=== PATIENT | male | born 1965 | race Caucasian/White ===

== ENCOUNTER → 2016-11-11 | Outpatient (CLI) | payer BC ==
[~2016-11-11] MED LIST: OMEP20CA59 PO; OXYC-57 PO
--- NOTE | 2016-11-11 15:42 | DIAGNOSTIC IMAGING REPORT ---
CHEST 2 VIEWS ROUTINE CLINICAL HISTORY: 68.89 Flu-like [id number] dyspnea COMPARISON STUDY: 01/18/2016 FINDINGS: The bones soft tissues and hemidiaphragms are normal. The cardiomediastinal silhouette is normal. The lungs are clear. The pulmonary vasculature is normal. IMPRESSION: Negative chest. Electronically signed by: Gutierrez Lopez M.D. 11/11/2016 3:41 PM Dictated Date/Time: 11/11/2016 3:41 PM
[2016-11-11 15:51] LABS: URINE APPEARANCE CLEAR (CLEAR); URINE BILIRUBIN NEG (NEG); URINE COLOR YELLOW; URINE EPITHELIAL CELL AUTO 0-5 /lpf (0-5); URINE NITRITE NEG (NEG); URINE PH 6.5 (4.5-7.5); URINE SPECIFIC GRAVITY 1.019 (1.000-1.030); UROBILINOGEN NEG (NEG); ZZUR CULT IF INDIC CLEAN CATCH NO
[2016-11-11 15:57] LABS: MANUAL MICROSCOPIC REQUIRED? NO; REVIEW REQ? NO
[2016-11-11 16:19] LABS: ALT/SGPT 96 U/L (12-78); AST/SGOT 50 U/L (15-37); BLOOD UREA NITROGEN 14 mg/dl (7-18); BUN/CREATININE RATIO 14.8 (10-20); CARBON DIOXIDE 32 mmol/L (21-32); CHLORIDE 105 mmol/L (98-107); CREATININE 0.97 mg/dl (0.60-1.40); GLUCOSE 84 mg/dl (70-99); POTASSIUM 4.3 mmol/L (3.5-5.1); SODIUM 143 mmol/L (136-145)
[2016-11-11 16:23] LABS: ALB/GLOB RATIO 1.1 (0.9-2); ALKALINE PHOSPHATASE 140 U/L (45-117)
[2016-11-11 16:38] LABS: HEMATOCRIT 43.3 % (42-52); MEAN CELL VOLUME 86.4 fL (80-100); MEAN CORPUSCULAR HEMOGLOBIN 29.1 pg (25-34); MEAN CORPUSCULAR HGB CONC 33.7 g/dl (32-36); MEAN PLATELET VOLUME 11.2 fL (7.4-10.4); PLATELET COUNT 140 K/uL (130-400); RED BLOOD COUNT 5.01 M/uL (4.7-6.1); WHITE BLOOD COUNT 3.49 K/uL (4.8-10.8)
[2016-11-11 16:40] LABS: COMPLETE YES; ECHINOCYTES 1+; SMUDGE CELLS PRESENT
[2016-11-14 07:01] LABS: EOSINOPHIL % 1.8 %; NEUTROPHILS % 21.6 %
[2016-11-14 07:02] LABS: LYMPH ABS # 1.88 K/uL (1.2-3.4); VARIANT LYM ABS # 0.35 K/uL
== END | disposition home or self-care (01) ==
LOC: C.RAD1850 14:45
PROVIDERS: ATTEND Internal Medicine
DX: R50.9 Fever, unspecified (principal); R68.89 Other general symptoms and signs

== ENCOUNTER → 2016-11-14 | Outpatient (CLI) | payer BC ==
[2016-11-14 16:33] LABS: HEMATOCRIT 43.9 % (42-52); MEAN CELL VOLUME 86.4 fL (80-100); MEAN CORPUSCULAR HEMOGLOBIN 28.9 pg (25-34); MEAN CORPUSCULAR HGB CONC 33.5 g/dl (32-36); MEAN PLATELET VOLUME 10.7 fL (7.4-10.4); PLATELET COUNT 228 K/uL (130-400); RED BLOOD COUNT 5.08 M/uL (4.7-6.1); WHITE BLOOD COUNT 6.96 K/uL (4.8-10.8)
[2016-11-14 16:41] LABS: ALT/SGPT 159 U/L (12-78); BLOOD UREA NITROGEN 15 mg/dl (7-18); BUN/CREATININE RATIO 15.2 (10-20); CARBON DIOXIDE 29 mmol/L (21-32); CHLORIDE 105 mmol/L (98-107); CREATININE 0.98 mg/dl (0.60-1.40); GLUCOSE 80 mg/dl (70-99); SODIUM 142 mmol/L (136-145)
[2016-11-14 16:44] LABS: ALB/GLOB RATIO 1.1 (0.9-2); ALKALINE PHOSPHATASE 123 U/L (45-117); AST/SGOT 74 U/L (15-37)
[2016-11-14 16:57] LABS: CALCIUM 9.4 mg/dl (8.5-10.1)
[2016-11-14 16:58] LABS: BASO ABS # 0.12 K/uL (0-0.2); BASOPHIL % 1.7 % (0-2); COMPLETE YES; EOSINOPHIL % 1.7 %; LYMPH ABS # 1.88 K/uL (1.2-3.4); NEUTROPHILS % 32.2 %; VARIANT LYM ABS # 2.42 K/uL; VARIANT LYMPHOCYTE % 34.8 %
[2016-11-14 17:04] LABS: LYME DISEASE AB IGG NEG (NEG); LYME DISEASE AB IGM NEG (NEG)
[2016-11-17 18:34] LABS: ANAPLASMA PHAGOCYTOPHIL IGG <1:64 (<1:64); ANAPLASMA PHAGOCYTOPHIL IGM <1:20 (<1:20); EHRLICHIA CHAFF IGG AB <1:64 (<1:64); EHRLICHIA CHAFF IGM AB <1:20 (<1:20)
== END | disposition home or self-care (01) ==
LOC: C.LAB1850 14:46
PROVIDERS: ATTEND Internal Medicine
DX: R79.9 Abnormal finding of blood chemistry, unspecified (principal); R50.9 Fever, unspecified; D70.9 Neutropenia, unspecified

== ENCOUNTER → 2016-11-28 | Outpatient (CLI) | payer BC ==
[~2016-11-28] MED LIST changes: -OXYC-57 PO
[2016-11-28 15:47] LABS: HEMATOCRIT 43.2 % (42-52); MEAN CELL VOLUME 86.6 fL (80-100); MEAN CORPUSCULAR HEMOGLOBIN 28.9 pg (25-34); MEAN CORPUSCULAR HGB CONC 33.3 g/dl (32-36); MEAN PLATELET VOLUME 10.7 fL (7.4-10.4); PLATELET COUNT 240 K/uL (130-400); RED BLOOD COUNT 4.99 M/uL (4.7-6.1); WHITE BLOOD COUNT 5.21 K/uL (4.8-10.8)
[2016-11-28 16:12] LABS: COMPLETE YES
[2016-11-28 16:18] LABS: ALT/SGPT 44 U/L (12-78); AST/SGOT 19 U/L (15-37); BLOOD UREA NITROGEN 13 mg/dl (7-18); BUN/CREATININE RATIO 13.3 (10-20); CARBON DIOXIDE 30 mmol/L (21-32); CHLORIDE 107 mmol/L (98-107); GLUCOSE 99 mg/dl (70-99); POTASSIUM 4.2 mmol/L (3.5-5.1); SODIUM 142 mmol/L (136-145)
[2016-11-28 16:21] LABS: ALB/GLOB RATIO 1.1 (0.9-2); ALKALINE PHOSPHATASE 119 U/L (45-117)
[2016-11-28 17:16] LABS: LYMPHOCYTE % 63.4 %; NEUTROPHILS % 25.9 %
[2016-11-28 17:17] LABS: BASO ABS # 0.05 K/uL (0-0.2); BASOPHIL % 0.9 % (0-2); EOSINOPHIL % 3.6 %
[2016-12-01 16:33] LABS: ANAPLASMA PHAGOCYTOPHIL IGG <1:64 (<1:64); ANAPLASMA PHAGOCYTOPHIL IGM <1:20 (<1:20)
== END | disposition home or self-care (01) ==
LOC: C.LAB1850 14:55
PROVIDERS: ATTEND Internal Medicine
DX: R79.9 Abnormal finding of blood chemistry, unspecified (principal); Z11.59 Encounter for screening for other viral diseases; R50.9 Fever, unspecified; D70.9 Neutropenia, unspecified

== ENCOUNTER → 2016-12-28 | Day surgery (SDC) | payer BC, OTHER ==
[2016-12-20 08:33] VITALS: Ht 177.8 cm; Wt 104.5 kg
[~2016-12-28] VITALS: Ht 177.8 cm; Wt 104.5 kg
[~2016-12-28] MED LIST changes: +PROPOFOL IV EMULSION 10 MG/ML 20 ML VIAL IV ONE; +SODIUM CHLORIDE 0.9% 500ML 500 ML IV ONE
--- NOTE | 2016-12-28 08:26 | Endo History and Physical ---
History & Physical Date of Service: Dec 28, 2016. Chief Complaint: Screening Referring Physician: Mccann History of Present Illness 51 yo CM who presents for screening colonoscopy. Past Surgical History Hx Cardiac Surgery: No Hx Internal Defibrillator: No Hx Pacemaker: No Hx Abdominal Surgery: Yes (HERNIA-05/2016) Hx of Implantable Prosthesis: No Hx Post-Op Nausea and Vomiting: No ( ) Hx Cancer Surgery: No Hx Thoracic Surgery: No Hx Orthopedic: No Hx Urinary Tract Surgery: No Family History Colon CA, Polyp Social History Smoking Status: Never Smoker Hx Substance Use: No Hx Alcohol Use: Yes (6-10 BEER A WEEK) Allergies Coded Allergies: Penicillins (Verified Allergy, Unknown, HIVES, 12/20/16) Current Medications Reported Home Medications Medications Dose Route/Sig Max Daily Dose Days Date Category Prilosec (Omeprazole) 20 Mg Capcr 20 Mg PO DAILY PRN 12/20/11 Reported Vital Signs Weight (Kilograms): 104.55 Height (Feet): 5 Height (Inches): 10 Date Time Temp Pulse Resp B/P (MAP) Pulse Ox O2 Delivery O2 Flow Rate FiO2 12/28/16 08:17 36.8 86 18 120/85 (97) 96 Room Air Physical Exam General Appearance: WD/WN, no apparent distress Respiratory/Chest: Auscultation: breath sounds normal Cardiovascular: Heart Auscultation: RRR Abdomen: Bowel Sounds: normal Inspection & Palpation: soft, non-distended, no tenderness, guarding & rebound Assessment and Plan Assessment: 51 yo CM who presents for screening colonoscopy. Plan: Proceed with colonoscopy.
--- NOTE | 2016-12-28 08:59 | GI REPORT ---
Procedure Date: 12/28/2016 8:28 AM Procedure: Colonoscopy Indications: Screening for colorectal malignant neoplasm Medicines: Monitored Anesthesia Care Complications: No immediate complications. Estimated Blood Loss: Estimated blood loss: none. Procedure: Pre-Anesthesia Assessment: - Prior to the procedure, a History and Physical was performed, and patient medications and allergies were reviewed. The patient's tolerance of previous anesthesia was also reviewed. The risks and benefits of the procedure and the sedation options and risks were discussed with the patient. All questions were answered, and informed consent was obtained. Prior Anticoagulants: The patient has taken no previous anticoagulant or antiplatelet agents. ASA Grade Assessment: I - A normal, healthy patient. After reviewing the risks and benefits, the patient was deemed in satisfactory condition to undergo the procedure. After I obtained informed consent, the scope was passed under direct vision. Throughout the procedure, the patient's blood pressure, pulse, and oxygen saturations were monitored continuously. The scope was introduced through the anus and advanced to the terminal ileum. The colonoscopy was performed without difficulty. The patient tolerated the procedure well. The quality of the bowel preparation was good. The terminal ileum, ileocecal valve, appendiceal orifice, and rectum were photographed. Findings: A 5 mm polyp was found in the sigmoid colon. The polyp was sessile. The polyp was removed with a hot snare. Resection and retrieval were complete. Multiple small-mouthed diverticula were found in the sigmoid colon. Non-bleeding internal hemorrhoids were found during retroflexion. The hemorrhoids were small. Impression: - One 5 mm polyp in the sigmoid colon, removed with a hot snare. Resected and retrieved. - Diverticulosis in the sigmoid colon. - Non-bleeding internal hemorrhoids. Recommendation: - Resume previous diet. - Continue present medications. - Repeat colonoscopy for surveillance based on pathology results. - Return to primary care physician as previously scheduled. Dawson Chatman DO 12/28/2016 8:59:12 AM This report has been signed electronically. Note Initiated On: 12/28/2016 8:28 AM I attest to the content of the Intraoperative Record and orders documented therein, exceptions below
--- NOTE | 2016-12-28 09:01 | Discharge Instructions ---
Endoscopy Patient Instructions Date / Procedure(s) Performed Dec 28, 2016. Colonoscopy Allergy Information Coded Allergies: Penicillins (Verified Allergy, Unknown, HIVES, 12/20/16) Discharge Date / Findings Dec 28, 2016. Colon polyp Diverticulosis Internal hemorrhoids Medication Instructions OK to resume all medications today as prescribed Medications Dose Route/Sig Max Daily Dose Days Date Category Prilosec (Omeprazole) 20 Mg Capcr 20 Mg PO DAILY PRN 12/20/11 Reported Provider Instructions Activity Restrictions - No exercising or heavy lifting for 24 hours. - Do not drink alcohol the day of the procedure. - Do not drive a car or operate machinery until the day after the procedure. - Do not make any important decisions or sign important papers in 24 hours after the procedure. Following Day: - Return to full activity which may include returning to work/school. Diet Start your diet with liquids and light foods (jello, soup, juice, toast). Then eat your usual diet if not nauseated. Treatment For Common After Affects For mild abdominal pain, bloating, or excessive gas: - Rest - Eat lightly - Lie on right side Follow-Up Information Follow-up with [facility] as scheduled Anesthesia Information What You Should Know You have had a procedure that required some medicine to reduce anxiety and discomfort. This treatment is called moderate sedation. After receiving the treatment, you may be sleepy, but you will be able to breathe on your own. The effects of the treatment may last for several hours. Follow these instructions along with Activity/Diet recommendations noted above: * Do NOT do anything where dizziness or clumsiness would be dangerous. * Rest quietly at home today, then you can be up and about tomorrow. * Have a responsible person stay with you the rest of today. * You may have had an I.V. today. If so, you may take the dressing off later today. Recommendations Call your doctor if: * Trouble breathing * Continuous vomiting for more than 24 hours * Temperature above 101 degrees * Severe abdominal pain or bloating * Pain not relieved by pain medicine ordered * There is increased drainage or redness from any incision * A large amount of rectal bleeding greater than 2-3 tablespoons. (If you had a polyp/s removed or have hemorrhoids, a small amount of blood - from the rectum is to be expected.) * You have any unanswered questions or concerns. IN THE EVENT OF A SERIOUS EMERGENCY, GO TO THE NEAREST EMERGENCY ROOM Your discharge instructions were prepared by provider Dawson Chatman. Patient Instructions Signature Page Tremayne Maxi Patient (or Guardian) Signature/Date: I have read and understand the instructions given to me by my caregivers. Caregiver/RN/Doctor Signature/Date: The above-named patient and/or guardian has received patient instructions on this date. + Original Patient Signature Page (only) stays with chart. Please make copy for patient.
--- NOTE | 2016-12-28 09:30 | Anesthesiology Progress Note ---
Anesthesia Post Op Note Date & Time Dec 28, 2016 at 09:30 Vital Signs Pain Intensity: 0 Vital Signs Past 12 Hours Date Time Temp Pulse Resp B/P (MAP) Pulse Ox O2 Delivery O2 Flow Rate FiO2 12/28/16 09:15 88 18 115/89 (98) 100 Room Air 12/28/16 09:02 93 18 87/69 (75) 100 Room Air 12/28/16 08:17 36.8 86 18 120/85 (97) 96 Room Air Notes Mental Status: alert / awake / arousable, participated in evaluation Pt Amnestic to Procedure: Yes Nausea / Vomiting: adequately controlled Pain: adequately controlled Airway Patency, RR, SpO2: stable & adequate BP & HR: stable & adequate Hydration State: stable & adequate Anesthetic Complications: no major complications apparent
[2016-12-28 09:47] VITALS: BP 129/88; PULSE 87; O2SAT 100
== END | disposition home or self-care (01) ==
LOC: C.GI 07:48
PROVIDERS: ATTEND Internal Medicine
DX: Z12.11 Encounter for screening for malignant neoplasm of colon (principal); D12.5 Benign neoplasm of sigmoid colon; K57.30 Diverticulosis of large intestine without perforation or abscess without bleeding; K64.8 Other hemorrhoids; Z80.0 Family history of malignant neoplasm of digestive organs; Z83.71 Family history of colonic polyps; Z79.899 Other long term (current) drug therapy

== ENCOUNTER → 2018-02-12 | Outpatient (CLI) | payer BC, OTHER ==
[~2018-02-12] MED LIST changes: -PROPOFOL IV EMULSION 10 MG/ML 20 ML VIAL IV ONE; -SODIUM CHLORIDE 0.9% 500ML 500 ML IV ONE
--- NOTE | 2018-02-12 13:14 | DIAGNOSTIC IMAGING REPORT ---
R KNEE 1 OR 2 VIEWS ROUTINE CLINICAL HISTORY: Right knee pain. Swelling of right knee joint. COMPARISON: Right knee radiographs August 29, 2006 and MRI of the right knee August 30, 2006. FINDINGS: Alignment of the right knee is anatomic. There is minimal medial compartment joint space narrowing with osteophytosis. There is no fracture. There is a possible right knee joint effusion. An irregular calcific density along the medial femoral condyle could reflect an old MCL injury. IMPRESSION: 1. No acute fracture. 2. Mild medial compartment osteoarthritis of the right knee. 3. Small calcific density along the medial femoral condyle which may reflect an old MCL injury. 4. Possible right knee joint effusion. Electronically signed by: Charly Richardson M.D. 02/12/2018 1:13 PM Dictated Date/Time: 02/12/2018 1:09 PM
[2018-02-12 17:07] LABS: BASO % 0.3 %; BASO ABS # 0.02 K/uL (0-0.2); EOS % 2.6 %; EOS ABS # 0.18 K/uL (0-0.5); HEMATOCRIT 47.3 % (42-52); HEMOGLOBIN 15.8 g/dL (14.0-18.0); IG# 0.02 K/uL (0.00-0.02); LYMPH % 31.9 %; LYMPH ABS # 2.19 K/uL (1.2-3.4); MEAN CELL VOLUME 87.8 fL (80-100); MEAN CORPUSCULAR HEMOGLOBIN 29.3 pg (25-34); MEAN CORPUSCULAR HGB CONC 33.4 g/dl (32-36); MEAN PLATELET VOLUME 11.7 fL (7.4-10.4); MONO % 6.8 %; MONO ABS # 0.47 K/uL (0.11-0.59); NEUT % 58.1 %; NEUT ABS # 3.99 K/uL (1.4-6.5); PLATELET COUNT 235 K/uL (130-400); RED CELL DISTRIBUTION WIDTH CV 13.9 % (11.5-14.5); RED CELL DISTRIBUTION WIDTH SD 44.6 fL (36.4-46.3); WHITE BLOOD COUNT 6.87 K/uL (4.8-10.8)
== END | disposition home or self-care (01) ==
LOC: C.RADBC 12:16
PROVIDERS: ATTEND Nurse Practitioner Adult Health
DX: M17.11 Unilateral primary osteoarthritis, right knee (principal); M25.561 Pain in right knee; M25.461 Effusion, right knee

== ENCOUNTER 2019-12-15 07:30 | Observation (INO) ==
[2019-12-15] MEDS ORDERED: SODIUM CHLORIDE 0.9% 1000ML 1,000 ML IV SCH (08:00)
[2019-12-15 08:06] LABS: Basophils # (auto) 0.04 K/uL (0-0.2); Basophils % (auto) 0.7 %; Eosinophils # (auto) 0.23 K/uL (0-0.5); Eosinophils % (auto) 4.3 %; Hematocrit (blood only) 49.8 % (42-52); Hemoglobin 16.3 g/dL (14.0-18.0); Immature Granulocytes # (auto) 0.01 K/uL (0.00-0.02); Immature Granulocytes % (auto) 0.2 %; Lymphocytes # (auto) 2.44 K/uL (1.2-3.4); Lymphocytes % (auto) 45.1 %; Mean Corpuscular Hgb Conc 32.7 g/dL (32-36); Mean Corpuscular Volume 88.5 fL (80-100); Monocytes % (auto) 7.4 %; Neutrophils # (auto) 2.29 K/uL (1.4-6.5); Neutrophils % (auto) 42.3 %; Platelet Count 240 K/uL (130-400); RDW Coefficient of Variation 13.7 % (11.5-14.5); RDW Standard Deviation 44.4 fL (36.4-46.3); Red Blood Count 5.63 M/uL (4.7-6.1); White Blood Count 5.41 K/uL (4.8-10.8)
--- NOTE | 2019-12-15 08:07 | Emergency Department Note ---
History of Present Illness General Chief complaint: Chest Pain Stated complaint: CHEST PAIN, BLOODY NOSE, HEADACHE, FLOATERS Source: patient Mode of arrival: ambulatory Limitations: no limitations History of Present Illness Provider complaint: chest pain, HTN, bloody nose, lightheadedness Onset (ago): hour(s) 1 This 54-year-old male patient with past medical history of GERD presents to the emergency department today, ambulatory, complaining of an episode of lightheadedness, chest pain, headache, bloody nose while taking a walk and exercising with his dog. The patient states this morning, he was on a 2 mile walk with his dog when he was walking approximately half a mile uphill and dev eloped sudden onset of bleeding from the right nostril. The patient states he continued to walk home, and felt very lightheaded and "not right". This began approximately 630 this morning. He states he stopped due to the bloody nose, then developed some chest pain which she describes as achiness and a 4/10 on the left side of his chest. He states 1 week ago, he was experiencing some left jaw pain which has also resolved. Patient denies any associated dyspnea. He has been doing a lot of lifting at work recently, so unclear whether this could have been related. He has not experienced the left jaw pain since then. The patient states for the past 1 to 2 weeks, he has been experiencing some intermittent left arm numbness. He denies any neck pain or injury. He denies any weakness, visual disturbances, speech disturbances. The patient states this morning, he did have coffee and did omeprazole, but this is normal for him. When he got home after the walk, he did take 325 mg of aspirin due to his concerns that he may be having a heart attack. The patient is a former tobacco user, and states he quit using chewing tobacco 4 years ago. He does admit to drinking a few cans of beer daily. He states his father of an RI at 72 years old. He denies any history of cardiac disease or cardiac events prior to this time. Patient denies any recent fever or illness. He denies any cough, congestion, abdominal pain, nausea, vomiting, weakness, numbness, gait abnormality. 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 Family History Father Coronary heart disease, Onset Age: 72 Mother Asthma Brother Hypertension Social History Preferred Language: British Communication Ability: Effective Beliefs That Will Affect Care: None Current Living Situation: Spouse current occupational status: employed current occupation: Works construction as a rois Other Information That Helps Us Care for You: No Feels Safe at Home: Yes Safety Concerns: Feels Safe At This Time Smoking Status: Never smoker Hx Alcohol Use: Yes Alcohol type: beer Alcohol Intake Frequency: Daily Alcohol Intake Frequency Comment: 3-4 beers daily, several times per week Hx Substance Use: No Physical Activity Frequency: Daily Physical Activity Frequency Comment: Walks 2 miles Review of Systems A total of 10 systems reviewed and were otherwise negative Physical Exam Vital Signs Vital Signs - 24 hr 12/15/19 07:35 12/15/19 07:46 12/15/19 08:03 Temperature 37.0 C Temperature Source Oral Pulse Rate 85 Pulse Rate [Left Finger] 84 Respiratory Rate 20 20 Respiratory Effort / Characteristics Non-Labored Spontaneous Non-Labored Spontaneous Respiratory Depth Normal Normal Respiratory Pattern Regular Blood Pressure 181/121 H Blood Pressure [Right Arm] 187/124 H Blood Pressure Mean 141 Blood Pressure Mean [Right Arm] 145 Blood Pressure Position Sitting Blood Pressure Position [Right Arm] Lying Pulse Oximetry 98 97 97 Oxygen Delivery Method Room Air Room Air Room Air Sepsis Recent Fever Within 48 Hours No Sepsis New/Unexplained Change in Mental Status No Sepsis Action Taken by Nursing No Action Required 12/15/19 09:31 12/15/19 11:00 Temperature Temperature Source Pulse Rate Pulse Rate [Left Finger] 64 70 Respiratory Rate 18 Respiratory Effort / Characteristics Respiratory Depth Respiratory Pattern Blood Pressure Blood Pressure [Right Arm] 148/84 H 170/116 H Blood Pressure Mean Blood Pressure Mean [Right Arm] 105 134 Blood Pressure Position Blood Pressure Position [Right Arm] Pulse Oximetry 100 97 Oxygen Delivery Method Room Air Room Air Sepsis Recent Fever Within 48 Hours Sepsis New/Unexplained Change in Mental Status Sepsis Action Taken by Nursing VITALS: Vitals are noted on the nurse's note and reviewed by myself. Vital signs stable. GENERAL: This is a 54-year-old white male, in no acute distress, nondiaphoretic, well-developed well-nourished. SKIN: The skin was without rashes, erythema, edema, or bruising. There is no tenting of the skin. Capillary refill less than 2 seconds. HEAD: Normocephalic atraumatic. EARS: External auditory canals clear, tympanic membranes pearly lima without erythema or effusion bilaterally. No hemotympanum. Negative dunn sign. EYES: Pupils equal round and reactive to light and accommodation. Conjunctivae without injection, sclerae without icterus. Extraocular movements intact. NOSE: Dried blood in the right nares. Patent, turbinates without inflammation or discharge. No sinus tenderness. MOUTH: Mucous membranes moist. Tonsils are not enlarged. Pharynx without e rythema or exudate. No blood in the posterior pharynx. Uvula midline. Airway patent. Tongue does not deviate. NECK: Supple without nuchal rigidity. No lymphadenopathy. No thyromegaly. Cervical spine is nontender. No JVD. HEART: Regular rate and rhythm without murmurs gallops or rubs. LUNGS: Clear to auscultation bilaterally without wheezes, rales or rhonchi. No retractions or accessory muscle use. ABDOMEN: Positive bowel sounds x 4. Normal tympanic percussion. Soft, nontender, without masses or organomegaly. Mcdonald sign negative. No guarding or rebound tenderness. MUSCULOSKELETAL: No muscle atrophy, erythema, or edema noted. Full range of motion without joint tenderness in all extremities. No tenderness to palpation. Normal gait. Strength 5/5 throughout. NEURO: Patient was alert and oriented to person place and time. Normal sensation to light and sharp touch. No focal neurological deficits. Course Course The patient was seen and evaluated as above. An order was placed for continuous cardiac monitoring. The monitor shows a normal sinus rhythm at a rate of 71 bpm. IV access obtained, labs drawn. Patient medicated with IV fluids. Imaging performed and reviewed by myself and radiologist as noted. Labs reviewed by myself. Repeat troponin and EKG performed. I discussed the findings with the patient at bedside. I recommended admission given patient's symptoms, hypertensive urgency, chest pain, and detectable troponin. Patient was agreeable. I discussed the case with my attending. I discussed the case with the environmental health manager. I discussed the case with Dr. London, not any hospitalist. She did agree to see and evaluate the patient for admission. Administered Medications Discontinued Medications Hydrochlorothiazide (Hctz) 25 mg PO NOW STA Stop: 12/15/19 12:28 Last Admin: 12/15/19 13:09 Dose: 25 mg Documented by: [id number] Sodium Chloride (Nss 1000ml) 1,000 mls @ 999 mls/hr IV .Q1H1M NADEEM Stop: 12/15/19 09:00 Last Infusion: 12/15/19 09:14 Dose: 0 mls/hr Documented by: [id number] Admin: 12/15/19 08:12 Dose: 999 mls/hr Documented by: [id number] Medical Decision Making Differential Diagnosis Benign hypertension, hypertensive emergency, cardiovascular pathology, toxicologic, pheochromocytoma, electrolyte abnormality, renal disease, endorgan damage, as well as other pathologies. Medical Records Attestation: I reviewed the patient's medical records. Home Medications Current Medication List: was personally reviewed by me Laboratory Data Attestation: I reviewed the patient's lab results. No leukocytosis, anemia, thrombocytopenia. Renal, hepatic function, and electrolytes without significant abnormality. INR 1.0. Initial troponin less t perez 0.015. Repeat troponin 0.016. Lipase 99. D-dimer 260. Result diagrams: 12/15/19 07:50 12/15/19 08:57 Lab Results 12/15/19 12/15/19 12/15/19 Range/Units 07:50 07:50 07:50 WBC 5.41 (4.8-10.8) K/uL RBC 5.63 (4.7-6.1) M/uL Hgb 16.3 (14.0-18.0) g/dL Hct 49.8 (42-52) % MCV 88.5 (80-100) fL MCH 29.0 (25-34) pg MCHC 32.7 (32-36) g/dL RDW Std Deviation 44.4 (36.4-46.3) fL RDW Coeff of Edwin 13.7 (11.5-14.5) % Plt Count 240 (130-400) K/uL MPV 11.0 H (7.4-10.4) fL Immature Gran % (Auto) 0.2 % Neut % (Auto) 42.3 % Lymph % (Auto) 45.1 % Trinity % (Auto) 7.4 % Eos % (Auto) 4.3 % Baso % (Auto) 0.7 % Immature Gran # (Auto) 0.01 (0.00-0.02) K/uL Neut # (Auto) 2.29 (1.4-6.5) K/uL Lymph # (Auto) 2.44 (1.2-3.4) K/uL Trinity # (Auto) 0.40 (0.11-0.59) K/uL Eos # (Auto) 0.23 (0-0.5) K/uL Baso # (Auto) 0.04 (0-0.2) K/uL PT 10.5 (9.0-12.0) Seconds INR 1.0 (0.9-1.1) APTT 34.9 H (21.0-31.0) Seconds PTT Ratio 1.3 D-Dimer (0-500) ug/L FEU Sodium 139 (136-145) mmol/L Potassium (3.5-5.1) mmol/L Chloride 109 H (98-107) mmol/L Carbon Dioxide 26 (21-32) mmol/L Anion Gap 4.0 (3-11) BUN 14 (7-18) mg/dl Creatinine 1.18 (0.6-1.4) mg/dl Est Cr Clr Drug Dosing 87.8 ml/min Est GFR ( Amer) 80.0 Est GFR (Non-Af Amer) 69.1 BUN/Creatinine Ratio 11.5 (10-20) Glucose 112 H (70-99) mg/dl Calcium 9.2 (8.5-10.1) mg/dl Total Bilirubin 0.5 (0.2-1) mg/dl AST (15-37) U/L ALT 36 (12-78) U/L Alkaline Phosphatase 112 (45-117) U/L Troponin I < 0.015 (0-0.045) ng/ml Total Protein 7.9 (6.4-8.2) gm/dl Albumin 4.1 (3.4-5.0) gm/dl Globulin 3.8 (2.5-4.0) gm/dl Albumin/Globulin Ratio 1.1 (0.9-2) Lipase 99 (73-393) U/L 12/15/19 12/15/19 12/15/19 Range/Units 08:57 10:18 11:40 WBC (4.8-10.8) K/uL RBC (4.7-6.1) M/uL Hgb (14.0-18.0) g/dL Hct (42-52) % MCV (80-100) fL MCH (25-34) pg MCHC (32-36) g/dL RDW Std Deviation (36.4-46.3) fL RDW Coeff of Edwin (11.5-14.5) % Plt Count (130-400) K/uL MPV (7.4-10.4) fL Immature Gran % (Auto) % Neut % (Auto) % Lymph % (Auto) % Trinity % (Auto) % Eos % (Auto) % Baso % (Auto) % Immature Gran # (Auto) (0.00-0.02) K/uL Neut # (Auto) (1.4-6.5) K/uL Lymph # (Auto) (1.2-3.4) K/uL Trinity # (Auto) (0.11-0.59) K/uL Eos # (Auto) (0-0.5) K/uL Baso # (Auto) (0-0.2) K/uL PT (9.0-12.0) Seconds INR (0.9-1.1) APTT (21.0-31.0) Seconds PTT Ratio D-Dimer 260 (0-500) ug/L FEU Sodium (136-145) mmol/L Potassium 4.4 (3.5-5.1) mmol/L Chloride (98-107) mmol/L Carbon Dioxide (21-32) mmol/L Anion Gap (3-11) BUN (7-18) mg/dl Creatinine (0.6-1.4) mg/dl Est Cr Clr Drug Dosing ml/min Est GFR ( Amer) Est GFR (Non-Af Amer) BUN/Creatinine Ratio (10-20) Glucose (70-99) mg/dl Calcium (8.5-10.1) mg/dl Total Bilirubin (0.2-1) mg/dl AST 16 (15-37) U/L ALT (12-78) U/L Alkaline Phosphatase (45-117) U/L Troponin I 0.016 (0-0.045) ng/ml Total Protein (6.4-8.2) gm/dl Albumin (3.4-5.0) gm/dl Globulin (2.5-4.0) gm/dl Albumin/Globulin Ratio (0.9-2) Lipase (73-393) U/L Imaging Data Radiologist's Impression: CT head/brain wo con CT DOSE: 537.48 mGy.cm HISTORY: Hypertension hypertension, lightheadedness, headache TECHNIQUE: Multiaxial CT images of the head were performed without the use of intravenous contrast. A dose lowering technique was utilized adhering to the principles of ALARA. Comparison: None. Findings: The paranasal sinuses and mastoid air cells are clear. The calvarium a nd skull base are intact. The ventricles and sulci are within normal limits. There is no mass, hematoma, midline shift, or acute infarct. Impression: No acute intracranial abnormality. ACT 112: Negative or not required by law. The above report was generated using voice recognition software. It may contain grammatical, syntax or spelling errors. Electronically signed by: Gutierrez Lopez M.D. 12/15/2019 8:24 AM XR chest 1V portable CLINICAL HISTORY: Chest Pain COMPARISON STUDY: 11/11/2018 FINDINGS: The bones soft tissues and hemidiaphragms are normal. The cardiomediastinal silhouette is normal. The lungs are clear. The pulmonary vasculature is normal. IMPRESSION: Negative chest. ACT 112: Negative or not required by law. The above report was generated using voice recognition software. It may contain grammatical, syntax or spelling errors. Electronically signed by: Gutierrez Lopez M.D. 12/15/2019 9:01 AM ECG Data Attestation: I personally reviewed and interpreted this ECG as follows: Indication: chest pain Rate (beats per minute): 76 Rhythm: sinus with SA Findings: + RBBB (incomplete); no T-wave inversion, no ST elevation and no ectopy Comparison ECG Date: no prior available Additional Comments: Repeat EKG at 0932 shows a normal sinus rhythm with a ventr icular rate of 76 bpm. Sinus arrhythmia noted. No ST elevation or depression. No T wave inversion. No acute ischemic change, however incomplete right bundle branch block still noted. Blood Pressure Blood Pressure Findings: Elevated blood pressure Blood Pressure Disposition: elevated BP felt to be situational Head Trauma GCS Score: 15 MDM Narrative This 54-year-old male patient presents the emergency department today due to epistaxis, lightheadedness, chest pain, visual disturbances which occurred during a walk. This does seem to be consistent with a hypertensive urgency. When the patient initially presented, his blood pressure was in the 180s over 120s. His chest pain had resolved. Initial cardiac work-up negative with no acute ischemic changes on EKG and negative troponin. The patient does have an incomplete right bundle branch block. Repeat troponin was now detectable. Repeat EKG consistent with the first. CT imaging of the head was negative. Given work-up here in the ED and patient's symptoms, I do recommend inpatient management at this time. The patient will be admitted to the hospitalist [facility]. Please see hospitalist dictation regarding ongoing management care of this patient. The chart was completed utilizing [employer] voice recognition software. Grammatical errors, random word insertions, pronoun errors, and incomplete sentences are an occasional consequence of this system due to software limitations, ambient noise, and hardware issues. Any formal questions or concerns about the content, text, or information contained within the body of this dictation should be directly addressed to the provider for clarification. Impression & Plan Hypertensive urgency, Chest pain, Headache, Epistaxis Discharge Plan Visit Data *Final* Discharge Date/Time: 12/15/19 13:16 Chief Complaint: Chest Pain Stated Complaint: CHEST PAIN, BLOODY NOSE, HEADACHE, FLOATERS ED Provider: Tin Whitman ED Midlevel Provider: Gladis Patel Discharge Problem: Hypertensive urgency, Chest pain, Headache, Epistaxis Patient Disposition: Admitted As Inpatient Discharge Instructions Interventions: ED Discharge Assessment Last Done: 12/15/19 13:16
[2019-12-15 08:16] LABS: Partial Thromboplastin Ratio 1.3; Partial Thromboplastin Time 34.9 Seconds (21.0-31.0); Prothrombin Time 10.5 Seconds (9.0-12.0)
--- NOTE | 2019-12-15 08:26 | CT Scan Report ---
CT head/brain wo con CT DOSE: 537.48 mGy.cm HISTORY: Hypertension hypertension, lightheadedness, headache TECHNIQUE: Multiaxial CT images of the head were performed without the use of intravenous contrast. A dose lowering technique was utilized adhering to the principles of ALARA. Comparison: None. Findings: The paranasal sinuses and mastoid air cells are clear. The calvarium and skull base are int act. The ventricles and sulci are within normal limits. There is no mass, hematoma, midline shift, or acute infarct. Impression: No acute intracranial abnormality. ACT 112: Negative or not required by law. The above report was generated using voice recognition software. It may contain grammatical, syntax or spelling errors. Electronically signed by: Gutierrez Lopez M.D. 12/15/2019 8:24 AM
[2019-12-15 08:39] LABS: Alanine Aminotransferase 36 U/L (12-78); Albumin Globulin Ratio 1.1 (0.9-2); Albumin Level 4.1 gm/dl (3.4-5.0); Alkaline Phosphatase 112 U/L (45-117); BUN Creatinine Ratio 11.5 (10-20); Bilirubin,Total 0.5 mg/dl (0.2-1); Blood Urea Nitrogen 14 mg/dl (7-18); Calcium 9.2 mg/dl (8.5-10.1); Carbon Dioxide 26 mmol/L (21-32); Chloride 109 mmol/L (98-107); Creatinine Clr Calc Pharmacy 87.8 ml/min; Est GFR (Non-African American) 69.1; Globulin 3.8 gm/dl (2.5-4.0); Glucose 112 mg/dl (70-99); Lipase 99 U/L (73-393); Sodium 139 mmol/L (136-145); Total Protein 7.9 gm/dl (6.4-8.2); Troponin I < 0.015 ng/ml (0-0.045)
--- NOTE | 2019-12-15 09:02 | XRay Report ---
XR chest 1V portable CLINICAL HISTORY: Chest Pain COMPARISON STUDY: 11/11/2018 FINDINGS: The bones soft tissues and hemidiaphragms are normal. The cardiomediastinal silhouette is n ormal. The lungs are clear. The pulmonary vasculature is normal. IMPRESSION: Negative chest. ACT 112: Negative or not required by law. The above report was generated using voice recognition software. It may contain grammatical, syntax or spelling errors. Electronically signed by: Gutierrez Lopez M.D. 12/15/2019 9:01 AM
[2019-12-15 09:20] LABS: Potassium 4.4 mmol/L (3.5-5.1)
[2019-12-15 11:57] LABS: D Dimer 260 ug/L FEU (0-500)
--- NOTE | 2019-12-15 11:59 | History & Physical Report ---
Date of Service December 15, 2019 Assessment & Plan (1) Chest pain: Chest pain associated with significantly elevated blood pressure and hypertensive urgency. Atypical in nature. Also had an episode of jaw pain at rest the week prior which does not seem related. He does have underlying untreated hypertension as below -ECG without ischemic changes, second troponin performed in the ER 2 hours after the first became detectable although still within normal limits. All symptoms completely resolved once blood pressure improved D-dimer is negative Chest x-ray is normal -Admit to medical floor with telemetry on observation for further cardiac work- up -Serial troponin -Check resting echocardiogram -Continue aspirin 81 mg daily -Check lipid panel and hemoglobin A1c in the morning -Treating blood pressure as below -Daily ECG and ECG if chest pain recurs -If rules out for ACS overnight, would do stress echocardiogram in the morning- will keep NPO after midnight for this (2) Hypertensive urgency: Blood pressures significantly elevated on admission at 181/121 Given that he had epistaxis and the host of symptoms as per HPI, could be related to hypertensive urgency CT of the head is negative -Improved somewhat with rest -Discussed with him about starting hydrochlorothiazide 25 mg daily-he is agreeable -Follow BMP in the morning -If blood pressures not improved, would add on a second agent-perhaps lisinopril or metoprolol if ends up having concern for CAD (3) HTN (hypertension), benign: As above Starting HCTZ Consider adding on lisinopril or metoprolol if blood pressures remain uncontrolled -Counseled about eating low-sodium diet (4) Obesity: BMI 34.8 Needs counseling on weight loss (5) GERD (gastroesophageal reflux disease): Continue PPI (6) Headache: Secondary to hypertensive urgency, now resolved Follow blood pressures (7) DVT prophylaxis: Lovenox SQ Disposition-admit to medical floor with telemetry on observation overnight for chest pain work-up and hypertensive urgency History of Present Illness Chief Complaint: Chest pain, lightheadedness, nosebleed Primary Care Provider: Tommy Mccann MD This patient is a 54-year-old male with a history of GERD and white coat hypertension, who presents to the ER with acute onset of lightheadedness, epistaxis, a "weird feeling all over my body," and a headache that started this morning after his usual morning walk. He walks his dog 2 miles every single morning that involves a pretty steep hill and never has had issues in the past. This morning, at the top of the big hill, he noticed he felt very congested in the nose and he blew his nose and had a minor bloody nose. He thought that was unusual. When he returned from the walk and came into his driveway, he had a sudden onset of the above-noted weird feeling and felt lightheaded. He called his and she brought him in aspirin and put him in the car to take him to the hospital as he felt something was very wrong. He also developed left-sided chest pain that was 3 out of 4 in severity, nonradiating, not associated with any shortness of breath or nausea, and this lasted 5 to 10 minutes. It went away while he was riding in the car on the way to the ER. All of his symptoms are now completely resolved at the time I saw him. Of note, he does report an episode of right-sided jaw pain that lasted 20 to 30 minutes last week while he was sitting at rest of unknown etiology. That has not recurred since then. He has not had any leg swelling or calf pain. 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 He was completely his normal self prior to the episode this morning. When he first came to the ER, his blood pressure was significantly elevated at 181/121. He was not given any medication for this and his blood pressure came down slightly with rest and laying in the bed. He reports he had a stress test 8 to 10 years ago that was normal. He has never been treated for high blood pressure in the past, but reports that it is always high when he goes to the doctor's office, but often blames it on being white coat hypertension. He never checks his blood pressure at home. He reports he goes on his vigorous 2 mile walk every single day and has never before had any chest pains with it. He is a non-smoker, no history of diabetes. His father did pass away from an [place] at age 72, but likely had cardiac issues prior to that but never wanted to get checked out. He has 2 brothers with hypertension as well. Allergies Allergy/AdvReac Type Severity Reaction Status Date / Time Penicillins Allergy Unknown HIVES Verified 12/15/19 09:24 Home Medications Home Medications Medication Instructions Recorded Confirmed Type aspirin 325 mg PO DAILY PRN 12/15/19 12/15/19 History omeprazole 20 mg PO QAM 12/15/19 12/15/19 History Past Med/Surg History Medical History GERD (gastroesophageal reflux disease) Obesity Surgical History History of colonoscopy 2017 History of right inguinal hernia repair With excision of extensive lipoma of the cord Family History Father Coronary heart disease, Onset Age: 72 Mother Asthma Brother Hypertension Social History Preferred Language: Polish Communication Ability: Effective Beliefs That Will Affect Care: None Current Living Situation: Spouse current occupational status: employed current occupation: Works construction as a rios Other Information That Helps Us Care for You: No Feels Safe at Home: Yes Safety Concerns: Feels Safe At This Time Smoking Status: Never smoker Hx Alcohol Use: Yes Alcohol type: beer Alcohol Intake Frequency: Daily Alcohol Intake Frequency Comment: 3-4 beers daily, several times per week Hx Substance Use: No Physical Activity Frequency: Daily Physical Activity Frequency Comment: Walks 2 miles Review of Systems Review of Systems: All systems reviewed & are unremarkable except as noted in HPI & below Physical Exam Constitutional: WD/WN, vitals as above Eyes: PERRL, conjunctivae normal, anicteric sclerae ENMT: external ear and nose normal, oropharynx normal Neck: trachea midline, no thyromegaly Respiratory: normal respiratory effort, lungs clear to auscultation Cardiovascular: RRR, no murmur, no edema Extremities: no calf tenderness (And negative Homans sign bilaterally) Chest (Breasts): Chest: normal inspection of chest Gastrointestinal (Abdomen): normal bowel sounds, soft, nontender, no hepatosplenomegaly Musculoskeletal: Extremities: extremities normal to inspection; no cyanosis and no clubbing Skin: no rashes, warm and dry Neurologic: moves all extremities and awake; no focal motor deficits Psychiatric: A+Ox3, euthymic affect Lymphatic: no lymphedema Results & Data Results & Data ([facility]) Vital Signs (Past 12 Hours) Vital Signs Temp Pulse Pulse Resp BP BP Pulse Ox 12/15/19 09:31 64 148/84 H 100 12/15/19 08:03 97 12/15/19 07:46 84 20 187/124 H 97 12/15/19 07:35 37.0 C 85 20 181/121 H 98 Laboratory Results 12/15/19 12/15/19 12/15/19 Range/Units 11:40 10:18 08:57 WBC (4.8-10.8) K/uL RBC (4.7-6.1) M/uL Hgb (14.0-18.0) g/dL Hct (42-52) % MCV (80-100) fL MCH (25-34) pg MCHC (32-36) g/dL RDW Std Deviation (36.4-46.3) fL RDW Coeff of Edwin (11.5-14.5) % Plt Count (130-400) K/uL MPV (7.4-10.4) fL Immature Gran % (Auto) % Neut % (Auto) % Lymph % (Auto) % [place] % (Auto) % Eos % (Auto) % Baso % (Auto) % Immature Gran # (Auto) (0.00-0.02) K/uL Neut # (Auto) (1.4-6.5) K/uL Lymph # (Auto) (1.2-3.4) K/uL [place] # (Auto) (0.11-0.59) K/uL Eos # (Auto) (0-0.5) K/uL Baso # (Auto) (0-0.2) K/uL PT (9.0-12.0) Seconds INR (0.9-1.1) APTT (21.0-31.0) Seconds PTT Ratio D-Dimer Pending Sodium (136-145) mmol/L Potassium 4.4 (3.5-5.1) mmol/L Chloride (98-107) mmol/L Carbon Dioxide (21-32) mmol/L Anion Gap (3-11) BUN (7-18) mg/dl Creatinine (0.6-1.4) mg/dl Est Cr Clr Drug Dosing ml/min Est GFR ( Amer) Est GFR (Non-Af Amer) BUN/Creatinine Ratio (10-20) Glucose (70-99) mg/dl Calcium (8.5-10.1) mg/dl Total Bilirubin (0.2-1) mg/dl AST 16 (15-37) U/L ALT (12-78) U/L Alkaline Phosphatase (45-117) U/L Troponin I 0.016 (0-0.045) ng/ml Total Protein (6.4-8.2) gm/dl Albumin (3.4-5.0) gm/dl Globulin (2.5-4.0) gm/dl Albumin/Globulin Ratio (0.9-2) Lipase (73-393) U/L 12/15/19 12/15/19 12/15/19 Range/Units 07:50 07:50 07:50 WBC 5.41 (4.8-10.8) K/uL RBC 5.63 (4.7-6.1) M/uL Hgb 16.3 (14.0-18.0) g/dL Hct 49.8 (42-52) % MCV 88.5 (80-100) fL MCH 29.0 (25-34) pg MCHC 32.7 (32-36) g/dL RDW Std Deviation 44.4 (36.4-46.3) fL RDW Coeff of Edwin 13.7 (11.5-14.5) % Plt Count 240 (130-400) K/uL MPV 11.0 H (7.4-10.4) fL Immature Gran % (Auto) 0.2 % Neut % (Auto) 42.3 % Lymph % (Auto) 45.1 % [place] % (Auto) 7.4 % Eos % (Auto) 4.3 % Baso % (Auto) 0.7 % Immature Gran # (Auto) 0.01 (0.00-0.02) K/uL Neut # (Auto) 2.29 (1.4-6.5) K/uL Lymph # (Auto) 2.44 (1.2-3.4) K/uL [place] # (Auto) 0.40 (0.11-0.59) K/uL Eos # (Auto) 0.23 (0-0.5) K/uL Baso # (Auto) 0.04 (0-0.2) K/uL PT 10.5 (9.0-12.0) Seconds INR 1.0 (0.9-1.1) APTT 34.9 H (21.0-31.0) Seconds PTT Ratio 1.3 D-Dimer Sodium 139 (136-145) mmol/L Potassium (3.5-5.1) mmol/L Chloride 109 H (98-107) mmol/L Carbon Dioxide 26 (21-32) mmol/L Anion Gap 4.0 (3-11) BUN 14 (7-18) mg/dl Creatinine 1.18 (0.6-1.4) mg/dl Est Cr Clr Drug Dosing 87.8 ml/min Est GFR ( Amer) 80.0 Est GFR (Non-Af Amer) 69.1 BUN/Creatinine Ratio 11.5 (10-20) Glucose 112 H (70-99) mg/dl Calcium 9.2 (8.5-10.1) mg/dl Total Bilirubin 0.5 (0.2-1) mg/dl AST (15-37) U/L ALT 36 (12-78) U/L Alkaline Phosphatase 112 (45-117) U/L Troponin I < 0.015 (0-0.045) ng/ml Total Protein 7.9 (6.4-8.2) gm/dl Albumin 4.1 (3.4-5.0) gm/dl Globulin 3.8 (2.5-4.0) gm/dl Albumin/Globulin Ratio 1.1 (0.9-2) Lipase 99 (73-393) U/L Diagnostic Findings Chest x-ray image personally reviewed by me and agree with following report: XR chest 1V portable CLINICAL HISTORY: Chest Pain COMPARISON STUDY: 11/11/2018 FINDINGS: The bones soft tissues and hemidiaphragms are normal. The cardiomediastinal silhouette is normal. The lungs are clear. The pulmonary vasculature is normal. IMPRESSION: Negative chest. CT head/brain wo con CT DOSE: 537.48 mGy.cm HISTORY: Hypertension hypertension, lightheadedness, headache TECHNIQUE: Multiaxial CT images of the head were performed without the use of intravenous contrast. A dose lowering technique was utilized adhering to the principles of ALARA. Comparison: None. Findings: The paranasal sinuses and mastoid air cells are clear. The calvarium and skull base are intact. The ventricles and sulci are within normal limits. There is no mass, hematoma, midline shift, or acute infarct. Impression: No acute intracranial abnormality. ECG Additional Comments: ECG #1 on 12/15/2019 at 0745 with normal sinus rhythm, rate 76, with incomplete right bundle branch block, no ischemic changes ECG #2 on 12/15/2019 at 0932 with sinus bradycardia, rate 59, incomplete right bundle branch block, no ischemic changes, unchanged from previous Code Status & VTE Plan Code Status Full code VTE Prophylaxis Plan VTE Prophylaxis will be ordered: Yes PG Care Time/CCT Total # of Minutes Spent Total Time Spent with Patient: Total time spent is greater than 50% in coordination of care (as documented) at patient's floor/unit and/or counseling patient: Coding Level of Care Code 78040 OBS Care - Level 3 Diagnoses Chest pain R07.9 Hypertensive urgency I16.0 HTN (hypertension), benign I10 Obesity E66.9 GERD (gastroesophageal reflux disease) K21.9 Headache R51 DVT prophylaxis Z29.9
[2019-12-15] MEDS ORDERED: hydroCHLOROthiazide 25 MG TAB PO STA (12:27)
[2019-12-15] MEDS ORDERED: ALUMINUM/MAGNESIUM SUSP 30 ML UDC PO PRN (13:39)
[2019-12-15] MEDS ORDERED: ACETAMINOPHEN 325 MG TAB PO PRN (13:39)
[2019-12-15] MEDS ORDERED: MoRPHine SULFATE 2 MG/ML CARP IV PRN (13:39)
[2019-12-15] MEDS ORDERED: NITROGLYCERIN SL 0.4 MG/TAB TAB SL PRN (13:39)
[2019-12-15] MEDS ORDERED: POLYETHYLENE (MIRALAX) 17 GM PACK PO PRN (13:39)
[2019-12-15] MEDS ORDERED: ONDANSETRON INJ 2 MG/ML 2 ML VIAL IV PRN (13:39)
[2019-12-15] MEDS ORDERED: MAGNESIUM HYDROXIDE SUSP 30 ML UDC PO PRN (13:39)
[2019-12-15] MEDS: METOPROLOL TARTRATE 25 MG TAB PO SCH ×2 (16:20→21:07)
[2019-12-15] MEDS ORDERED: ENOXAPARIN INJ 40 MG/0.4 ML SYR SQ SCH (18:00)
--- NOTE | 2019-12-16 05:49 | Electrocardiogram Report ---
Test Reason : Blood Pressure : / mmHG Vent. Rate : 076 BPM Atrial Rate : 076 BPM P-R Int : 148 ms QRS Dur : 096 ms QT Int : 394 ms P-R-T Axes : 043 003 021 degrees QTc Int : 443 ms Normal sinus rhythm with sinus arrhythmia Incomplete right bundle branch block No previous ECGs available Confirmed by Dylan Alfonso ([id number]) on 12/16/2019 5:49:00 AM Referred By: REFERRED SELF Confirmed By:Dylan Alfonso
--- NOTE | 2019-12-16 05:51 | Electrocardiogram Report ---
Test Reason : Blood Pressure : / mmHG Vent. Rate : 059 BPM Atrial Rate : 059 BPM P-R Int : 154 ms QRS Dur : 092 ms QT Int : 430 ms P-R-T Axes : 017 -06 010 degrees QTc Int : 425 ms Sinus bradycardia Minimal voltage criteria for LVH, may be normal variant Incomplete right bundle branch block When compared with ECG of 15-DEC-2019 07:45, No significant change was found Confirmed by Dylan Alfonso ([id number]) on 12/16/2019 5:51:36 AM Referred By: REFERRED SELF Confirmed By:Dylan Alfonso
[2019-12-16 06:58] LABS: BUN Creatinine Ratio 11.5 (10-20); Calcium 9.2 mg/dl (8.5-10.1); Creatinine Clr Calc Pharmacy 88.7 ml/min; Est GFR (African American) 83.4; Potassium 3.8 mmol/L (3.5-5.1)
[2019-12-16 07:06] LABS: Estimated Average Glucose 111 mg/dl; Hemoglobin A1C 5.5 % (4.5-5.6)
[2019-12-16] MEDS: METOPROLOL TARTRATE 25 MG TAB PO SCH (07:54)
--- NOTE | 2019-12-16 07:55 | XCELERA ---
[id number] \\[id number]___[id number]
[2019-12-16] MEDS ORDERED: hydroCHLOROthiazide 25 MG TAB PO SCH (09:00)
[2019-12-16] MEDS ORDERED: ASPIRIN 81 MG ECTAB PO SCH (09:00)
[2019-12-16] MEDS ORDERED: PANTOprazole 40 MG TAB PO SCH (09:00)
--- NOTE | 2019-12-16 15:04 | XCELERA ---
[id number] \\[id number]___[id number]
--- NOTE | 2019-12-16 15:23 | Discharge Summary ---
Date of Service date of admission - December 15, 2019 date of discharge - December 16, 2019 Admission HPI Per Admitting Provider This patient is a 54-year-old male with a history of GERD and white coat hypertension, who presents to the ER with acute onset of lightheadedness, epistaxis, a "weird feeling all over my body," and a headache that started this morning after his usual morning walk. He walks his dog 2 miles every single morning that involves a pretty steep hill and never has had issues in the past. This morning, at the top of the big hill, he noticed he felt very congested in the nose and he blew his nose and had a minor bloody nose. He thought that was unusual. When he returned from the walk and came into his driveway, he had a sudden onset of the above-noted weird feeling and felt lightheaded. He called his and she brought him in aspirin and put him in the car to take him to the hospital as he felt something was very wrong. He also developed left-sided chest pain that was 3 out of 4 in severity, nonradiating, not associated with any shortness of breath or nausea, and this lasted 5 to 10 minutes. It went away while he was riding in the car on the way to the ER. All of his symptoms are now completely resolved at the time I saw him. Of note, he does report an episode of right-sided jaw pain that lasted 20 to 30 minutes last week while he was sitting at rest of unknown etiology. That has not recurred since then. He has not had any leg swelling or calf pain. 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 He was completely his normal self prior to the episode this morning. When he first came to the ER, his blood pressure was significantly elevated at 181/121. He was not given any medication for this and his blood pressure came down slightly with rest and laying in the bed. He reports he had a stress test 8 to 10 years ago that was normal. He has never been treated for high blood pressure in the past, but reports that it is always high when he goes to the doctor's office, but often blames it on being white coat hypertension. He never checks his blood pressure at home. He reports he goes on his vigorous 2 mile walk every single day and has never before had any chest pains with it. He is a non-smoker, no history of diabetes. His father did pass away from an [place] at age 72, but likely had cardiac issues prior to that but never wanted to get checked out. He has 2 brothers with hypertension as well. Principal Diagnosis chest pain, ACS ruled out, negative stress test Discharge Exam Constitutional well developed and well nourished; no acute distress and no altered mental status ENMT external ear and nose normal, oropharynx normal Respiratory normal respiratory effort, lungs clear to auscultation Cardiovascular Rate/Rhythm: regular rate and regular rhythm Heart Sounds: normal S1 and normal S2; no murmur Vessels: posterior tibial pulses present, dorsalis pedis pulses present and radial pulses present; no JVD Extremities: no edema Gastrointestinal (Abdomen) normal bowel sounds, soft, nontender, no hepatosplenomegaly Neurologic moves all extremities; no focal motor deficits Psychiatric A+Ox3, euthymic affect Discharge Data Allergies Allergy/AdvReac Type Severity Reaction Status Date / Time Penicillins Allergy Unknown HIVES Verified 12/15/19 09:[address] head/brain - no acute process Echocardiogram - * EF 60-65% * normal valve function * mild LVH Exercise stress echocardiogram - * no ischemia at 100% MPHR * hypertensive response to exercise * no symptoms Hospital Course (1) Chest pain: Suspect was due to markedly elevated blood pressure at time of presentation (systolic BP was >200). Chest x-ray was normal. D-dimer was negative. Echo was normal. Stress echocardiogram was NEGATIVE for ischemia. Symptoms did not suggest pulmonary or GI origin. Chest pain did NOT recur following admission. (2) Hypertensive urgency: Resolved. Will discharge home on toprol xl 25mg once daily. Advised he purchase a BP cuff and check his BPs daily at home. Discharge BP was much better with systolics in the 140s. (3) HTN (hypertension), benign: Suspect he has essential HTN. Will discharge home on 25mg of toprol xl. See above. (4) Obesity: BMI 33 (5) GERD (gastroesophageal reflux disease): Continue PPI (6) Headache: Likely was 2nd to hypertensive urgency. Resolved with improvement in his BPs. CT head was negative. Total Time Total Time Spent Total Time Spent (In Minutes): 35 Total Time Includes: Examination of the Patient, Discharge Planning and Medi cation Reconciliation Discharge Plan Discharge Items Patient Disposition: Home - Self-Care Reason For Visit: CHEST PAIN Discharge Diagnosis: 1. chest pain - no evidence of heart attack; NEGATIVE STRESS TEST. 2. high blood pressure; this may have been the cause of your presenting symptoms of not feeling well, chest pain, etc. Activity: Resume your previous activity Non-emergency contact: Primary Care Provider Call non-emergency contact if: you have any medication questions, your symptoms worsen and you have a fever Follow-up/Referrals: Reji Mccann MD [Primary Care Provider] - (see Dr Mccann or one of his partners within 1 week ) Diet: Heart Healthy Addtl Attending Provider Instructions: You were admitted due to chest discomfort, high blood pressure, and simply not feeling well. You had no evidence of heart attack based on normal blood work for the heart. Your echocardiogram of the heart showed normal heart function and normal heart valves. On 12/16/19 you underwent a treadmill stress test and this was NORMAL/NEGATIVE. Thus, the test suggests that you do NOT have blocked arteries in your heart. It is likely that the markedly elevated blood pressures were the cause of your presenting symptoms. Uncontrolled high blood pressure can sometimes cause chest discomforts, shortness of breath, etc. Recommendations - 1. take metoprolol xl 25mg once daily for your high blood pressure; take your first dose today 2. if you snore please obtain a sleep study from your family doctor; sleep apnea can contribute to high blood pressure 3. if possible purchase a blood pressure cuff from [facility]; check your blood pressure daily at home and bring these results to your family doctor for his/her review; ideal blood pressure is 120/80 or less Follow-up - see Dr Mccann's office within 1 week [facility] to [facility] if - * you have recurrent chest pains or shortness of breath * you have severe headaches * you have severely elevated blood pressure despite taking your normal BP meds * any other concerns Pending Studies at Discharge: No Stand-Alone Forms: My [facility] Monitise, Smoking Cessation Medications and DC Order Prescriptions: New metoprolol succinate [Toprol XL] 25 mg tablet extended release 24 hr 25 mg PO DAILY Qty: 30 RF: 5 Continued aspirin 325 mg Tablet 325 mg PO DAILY PRN (Reason: Chest Pain) RF: 0 omeprazole 20 mg Tablet,Delayed Release (Dr/Ec) 20 mg PO QAM RF: 0 Discharge Orders: Discharge Order (Routine); Ordered 12/16/19 Ordered By: Kyler Ferrer Admission Data Admit Date/Time: 12/15/19 12:27 Attending Provider: Kyler Ferrer Admit Provider: Stephanie London Primary Care Provider: Reji Mccann Other Providers: Stephanie London Other Interventions: Discharge Summary Assessment (RN) Last Done: 12/16/19 15:34 DC Date/Time DO NOT enter until pt leaves facility: 12/16/19 15:46 Coding Level of Care Code 87997 OBS Care - Discharge Diagnoses Chest pain R07.9 Chest pain type: unspecified Hypertensive urgency I16.0 HTN (hypertension), benign I10 Obesity E66.9 GERD (gastroesophageal reflux disease) K21.9 Headache R51 Headache chronicity pattern: acute headache Headache type: unspecified Intractability: not intractable
--- NOTE | 2019-12-16 22:38 | Electrocardiogram Report ---
Test Reason : Blood Pressure : / mmHG Vent. Rate : 063 BPM Atrial Rate : 063 BPM P-R Int : 160 ms QRS Dur : 100 ms QT Int : 428 ms P-R-T Axes : 026 008 029 degrees QTc Int : 437 ms Normal sinus rhythm Incomplete right bundle branch block Borderline ECG When compared with ECG of 15-DEC-2019 09:32, No significant change was found Confirmed by Dylan Alfonso ([id number]) on 12/16/2019 10:38:52 PM Referred By: REFERRED SELF Confirmed By:Dylan Alfonso
== END 2019-12-16 15:46 | disposition home or self-care (01) ==
LOC: 2N 07:30 → ED 07:30 → SUATTDRO 12:27 → 2N 13:16